=== PATIENT | male | born 1990 | race Caucasian/White ===

== ENCOUNTER 2017-03-13 19:32 | Emergency (ER) | payer SELFPAY ==
[2017-03-13 20:18] VITALS: TEMP 99.5
--- NOTE | 2017-03-13 21:11 | CT ---
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 Technique : Volumetric CT acquisition was performed through the brain. Images in the axial, coronal, and sagittal planes were presented for interpretation. This exam was performed according to our departmental dose-optimization program, which includes automated exposure control, adjustment of the mA and/or kV according to patient size and/or use of iterative reconstruction technique. Radiation dose : DLP-859.97 Findings: The soft tissue structures of the face, scalp, and orbits are normal. The globes remain intact. The visualized portions of the paranasal sinuses and mastoid air-cells are clear. The calvarium remains intact . There is no acute intracranial hemorrhage, midline shift, or mass effect. The ventricles are normal in size and the posterior fossa structures are normal in appearance. 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 Limited evaluation of the vasculature demonstrates no gross abnormalities. There is no CT evidence of acute infarction. Impression: 1. No acute intracranial process. 2. Congenital absence of the corpus callosum. Electronically signed by: Mike Sanz MD 03/13/2017 9:11 PM COMM[employer]
[2017-03-13] MEDS ORDERED: CYCLOBENZAPRINE HCL 10 MG TAB PO ONE (22:01)
--- NOTE | 2017-03-13 22:05 | ED.PDOC ---
History of Present Illness - General Chief Complaint: General Stated Complaint: left side numb x's 2 days Time Seen by Provider: 03/13/17 19:40 Source: patient Exam Limitations: no limitations - History of Present Illness Initial Comments: The patient is a 26-year-old male presenting to the emergency room secondary to 24-48 hours of symptoms of mild tingling in his left upper and left lower extremity as well as along his left scalp. He is also noticing increased fatigue. About a week ago he did have some gastrointestinal upset. No definite fevers. No altered mental status. He has had some poor sleep lately. No recent trauma. No new medications. No syncope or near syncope. No nuchal rigidity or meningeal signs. No urinary difficulties. No falling. No incontinence. Examination shows no objective decrease in strength on that side however he does feel that that side simply feels heavier to him. No difficulties with breathing. no difficulties with ambulation or coordination. No decreased sensation to fine touch or vibration or hot or cold. no difficulties with swallowing. No new vision changes. the patient has had a couple of strokes in the past but none recently. Timing/Duration: 24 hours Severity: mild Improving Factors: nothing Worsening Factors: nothing Associated Symptoms: denies symptoms Allergies/Adverse Reactions: Allergies NO KNOWN ALLERGY Allergy (Verified 03/13/17 20:18) Home Medications: Ambulatory Orders Cyclobenzaprine HCl [Flexeril] 5 mg PO TID PRN #14 tab 03/13/17 Review of Systems - Review of Systems Constitutional: States: malaise EENTM: States: no symptoms reported Respiratory: States: no symptoms reported Cardiology: States: no symptoms reported Gastrointestinal/Abdominal: States: see HPI Genitourinary: States: no symptoms reported Musculoskeletal: States: no symptoms reported Skin: States: no symptoms reported Neurological: States: anxiety, tingling Endocrine: States: no symptoms reported All other Systems: No Change from Baseline Past Medical History (General) - Patient Medical History Hx Seizures: No Hx Stroke: No Hx Dementia: No Hx Asthma: No Hx of COPD: No Hx Cardiac Disorders: No Hx Congestive Heart Failure: No Hx Pacemaker: No Hx Hypertension: No Hx Thyroid Disease: No Hx Diabetes: No Hx Gastroesophageal Reflux: No Hx Renal Disease: No Hx Cancer: No Hx of HIV: No Hx Hepatitis C: No Hx MRSA: No Surgical History: no surgical history - Vaccination History Hx Tetanus, Diphtheria Vaccination: Yes Hx Influenza Vaccination: No Hx Pneumococcal Vaccination: No - Social History Hx Tobacco Use: No Hx Alcohol Use: No Hx Substance Use: No Hx Substance Use Treatment: No Hx Depression: No Family Medical History - Family History Mother Living Status: Unknown Physical Exam - Physical Exam General Appearance: Alert, Anxious, No apparent distress Eye Exam: bilateral normal Ears, Nose, Throat: hearing grossly normal, normal ENT inspection, normal pharynx Neck: non-tender, full range of motion, supple, normal inspection Respiratory: lungs clear, normal breath sounds, no respiratory distress, no accessory muscle use Cardiovascular/Chest: normal peripheral pulses, regular rate, rhythm, no edema Peripheral Pulses: radial,right: 2+, radial,left: 2+, dorsalis pedis,right: 2+, dorsalis pedis,left: 2+ Gastrointestinal/Abdominal: non tender, soft Rectal Exam: deferred Back Exam: normal inspection Extremity: normal range of motion, non-tender, normal inspection, no pedal edema , no calf tenderness, normal capillary refill 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 Source of this is uncertain at this time. no new toxin or medication exposure that he knows of. Head CT aside from showing congenital agenesis of the corpus callosum showed no acute abnormalities. Blood work and rapid flu were essentially within normal limits. The patient needs to keep himself well- hydrated. He is going to be written for a low dose of Flexeril as a muscle relaxer in case he is having some spasm of the cervical spine giving some of these symptoms. physical exam is reassuring at this point. No evidence of any neurological compromise otherwise. Steroids will be avoided for now in case this is a infection related process that has not yet been defined. ER warnings were given for any worsening. He needs to follow-up with Dr. Yi towards the first of this week for reevaluation. - Results/Orders Results/Orders: Laboratory Results - last 24 hr 03/13/17 03/13/17 03/13/17 20:29 20:29 21:15 WBC 7.3 RBC 5.87 Hgb 16.9 Hct 49.1 MCV 83.6 MCH 28.8 MCHC 34.5 RDW 13.2 Plt Count 189 MPV 6.6 L Absolute Neuts (auto) 5.50 Absolute Lymphs (auto) 1.10 Absolute Monos (auto) 0.60 Absolute Eos (auto) 0.10 Absolute Basos (auto) 0.00 Neutrophils % 75.2 Lymphocytes % 14.8 L Monocytes % 8.6 Eosinophils % 0.9 L Basophils % 0.5 Sodium 139 Potassium 3.9 Chloride 106 Carbon Dioxide 23 Anion Gap 13.9 BUN 19 H Creatinine 1.12 BUN/Creatinine Ratio 17.0 Random Glucose 117 H Serum Osmolality 280.8 Calcium 8.6 Magnesium 2.1 Total Bilirubin 0.6 AST 25 ALT 30 Alkaline Phosphatase 76 Creatine Kinase 153 CK-MB (CK-2) 1.9 CK-MB (CK-2) % Not Reportable Troponin I < 0.02 B-Natriuretic Peptide < 5.0 Serum Total Protein 7.3 Albumin 4.2 Globulin 3.1 Albumin/Globulin Ratio 1.4 Amylase 29 Lipase 28 TSH 1.73 Urine Color Yellow Urine Appearance Clear Urine pH 5.0 Ur Specific [place] 1.025 Urine Protein Negative Urine Glucose (UA) 500 H Urine Ketones Trace Urine Blood Negative Urine Nitrite Negative Urine Bilirubin Negative Urine Urobilinogen 0.2 Ur Leukocyte Esterase Negative Urine RBC 0-1 Urine WBC 0-1 Ur Epithelial Cells 0-1 Urine Bacteria 0 Urine Mucus Trace head CT shows congenital agenesis of the corpus callosum otherwise nosignificant abnormalities are found. Departure - Departure Clinical Impression: Tingling of left upper extremity and left side of face Disposition: Discharge to Home or Self Care Condition: Fair Departure Forms: ED Discharge - Pt. Copy, Patient Portal Self Enrollment Diet: regular diet Activity: increase activity as tolerated Prescriptions: Cyclobenzaprine HCl [Flexeril] 5 mg PO TID PRN #14 tab PRN Reason: Muscle Spasms Home Medications: Ambulatory Orders Cyclobenzaprine HCl [Flexeril] 5 mg PO TID PRN #14 tab 03/13/17 Additional Instructions: the patient is a 26-year-old male presenting with symptoms of tingling and mild heaviness to the left side for a couple of days. Source of this is uncertain at this time. no new toxin or medication exposure that he knows of. Head CT aside from showing congenital agenesis of the corpus callosum showed no acute abnormalities. Blood work and rapid flu were essentially within normal limits. The patient needs to keep himself well- hydrated. He is going to be written for a low dose of Flexeril as a muscle relaxer in case he is having some spasm of the cervical spine giving some of these symptoms. physical exam is reassuring at this point. No evidence of any neurological compromise otherwise. Steroids will be avoided for now in case this is a infection related process that has not yet been defined. ER warnings were given for any worsening. He needs to follow-up with Dr. Yi towards the first of this week for reevaluation.
[2017-03-13 22:43] VITALS: BP 144/73; O2SAT 98
== END 2017-03-13 22:35 | disposition home or self-care (01) ==
LOC: ER 19:32
DX: R20.2 Paresthesia of skin (principal)

== ENCOUNTER → 2017-03-18 | Outpatient (CLI) | payer SELFPAY ==
--- NOTE | 2017-03-18 16:33 | MRI ---
EXAM DESCRIPTION: Brain w/o Contrast: MRI. CLINICAL HISTORY: Hemiplegia and hemiparesis COMPARISON: CT scan of the head 03/13/2017. TECHNIQUE: Multiplanar, high-field MRI unit, multiple diffusion sequences, multiple conventional sequences without contrast. FINDINGS: The corpus callosum is absent. The cortical sulci radiate to the roof of the third ventricle. The occipital horns of the lateral ventricles are bilaterally enlarged relative to the lateral ventricular bodies and frontal horns. The ventricular bodies are parallel. The frontal horns are slitlike. Cavum septum pellucidum is absent. Temporal horns are symmetric in size. . Well marginated, 3.9 x 1.2 cm bright T1 signal mass in the interhemispheric region between the small frontal horns is consistent with an interhemispheric lipoma. The third ventricle is elevated. Bilaterally there are branch-like streaks of brighter signal in the periventricular and subcortical white matter in the occipital lobes. These are seen more in the frontal and parietal lobes at the ventricles. These may represent Gayla bundles. Normal signal in the bilateral basal ganglia. Minimum bilateral hippocampal flattening. No hemorrhage, no cerebral edema, no mass-effect. Normal signal in the brainstem and cerebellar hemispheres. No hemorrhage, no cerebral edema, no mass-effect. Concordance of the diffusion and non-diffusion sequences with no diffusion restriction. No midline shift. No extra-axial hemorrhage. Extra-axial, 1.8 cm, cystlike structure abutting the posterior lateral left orbit and the anterior left temporal lobe. No midline interhemispheric cysts. Cisterna magna is present. Normal flow signal void in the major vessels of the lower elwha Guillaume, and the venous sinuses. IACs are symmetric bilaterally. Abnormal bright T2-weighted signal in the left mastoid air cells. No mass effect in the cerebellopontine angles. Pituitary gland occupies the entire sella. Base of the cerebellar tonsils is at the level of the foramen magnum. No significant abnormalities in the paranasal sinuses. The bony calvarium is intact. IMPRESSION: 1. Agenesis of the corpus callosum. 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 No interhemispheric cysts, but arachnoid cyst anterior to the left temporal lobe. Absent cavum septum pellucidum. Elevated third ventricle. Slightly dilated occipital horns of the lateral ventricles but no hydrocephalus. 2. No abnormal white matter or rolle matter signal in the brainstem or cerebellar hemispheres. No diffusion restriction in the cerebral hemispheres, or evidence of significant ischemia or infarction. Cisterna magna posterior to the cerebellar hemispheres in the midline. 3. Consider neurologic consult. Electronically signed by: Erasto Allred MD 03/18/2017 4:32 PM [facility] [place]
== END ==
LOC: MRI 07:46
PROVIDERS: ATTEND Family Medicine
DX: G81.94 Hemiplegia, unspecified affecting left nondominant side (principal); G93.0 Cerebral cysts

== ENCOUNTER 2019-06-10 13:30 | Emergency (ER) | payer BC ==
[2019-06-10] MEDS ORDERED: LIDOCAINE 1% 10 ML VIAL INJ ONE ×2 (13:52)
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
[2019-06-10] MEDS ORDERED: NEOMYCIN-BACITRACIN-POLYMYXIN 0.9 GM UD TOP ONE (16:04)
[2019-06-10 16:21] VITALS: BP 131/85; TEMP 97; O2SAT 99
== END 2019-06-10 16:15 | disposition home or self-care (01) ==
LOC: ER 13:30
DX: S61.412A Laceration without foreign body of left hand, initial encounter (principal); W26.0XXA Contact with knife, initial encounter; Y92.9 Unspecified place or not applicable